=== PATIENT | male | born 1965 | race Caucasian/White ===

== ENCOUNTER 2020-12-15 14:25 | Outpatient (CLI) | payer OTHER ==
[2020-12-15 16:08] LABS: #Basophils 0.1 10x3/uL (0.0-0.2); #Eosinphils 0.3 10x3/uL (0.0-0.5); #Monocytes 1.1 10x3/uL (0.0-1.1); %Basophils 0.8 % (0.0-2.0); %Eosinophils 2.3 % (0.0-6.0); %Lymphocytes 17.1 % (18.0-47.0); %Monocytes 9.6 % (0.0-10.0); %Neutrophils 69.7 % (40.0-75.0); Hemoglobin 15.8 g/dL (13.5-17.5); Mean Corpuscular HGB CONC 33.3 g/dL (32.0-36.0); Mean Corpuscular Hemoglobin 30.5 pg (27.0-33.0); Mean Corpuscular Volume 91.5 fl (81.2-95.1); Mean Platelet Volume 9.5 fl (7.4-10.4); Platelet Count 285 10x3/uL (150-450); RBC Distribution Width 12.6 % (11.5-14.5); Red Blood Cell (RBC) Count 5.18 10x6/uL (4.32-5.72); White Blood Cell (WBC) Count 11.4 10x3/uL (3.5-10.5)
[2020-12-16 11:50] LABS: SARS-CoV-2 PCR by NAA Not Detected (NotDetected)
== END 2020-12-15 14:26 | disposition home or self-care (01) ==
LOC: LABBT 14:25
PROVIDERS: ATTEND Orthopaedic Surgery Hand Surgery
DX: Z01.812 Encounter for preprocedural laboratory examination (principal); G56.03 Carpal tunnel syndrome, bilateral upper limbs; Z20.822 Contact with and (suspected) exposure to COVID-19
CPT/HCPCS: 85025; U0003; U0005

== ENCOUNTER 2020-12-18 05:41 | Day surgery (SDC) | payer OTHER ==
[2020-12-17 11:01] VITALS: BMI 38.7
[2020-12-18] MEDS ORDERED: ceFAZolin 2 GM/DEX 5% 100 ML BAG ONE ×2 (06:14→07:14)
[2020-12-18] MEDS ORDERED: Bacitracin Zinc Ointment 30 gm TUBE ONE (06:45)
[2020-12-18] MEDS ORDERED: Bupivacaine PF 0.5% 30 ML VIAL ONE ×2 (06:45→08:27)
[2020-12-18] MEDS ORDERED: Betamet Acet/Betamet Na Ph 30 MG/5 ML VIAL ONE (06:45)
[2020-12-18] MEDS ORDERED: Neomycin-Polymyxin 1 ML AMP ONE (06:45)
[2020-12-18] MEDS ORDERED: Morphine 10 MG/ML VIAL ONE (06:57)
[2020-12-18] MEDS ORDERED: Fentanyl 100 MCG/2 ML VIAL ONE (06:57)
[2020-12-18] MEDS ORDERED: Ondansetron PF 4 MG/2 ML Vial ONE (07:24)
[2020-12-18] MEDS ORDERED: Dexamethasone 20 MG/5 ML VIAL ONE (07:24)
[2020-12-18] MEDS ORDERED: Ketorolac Tromethamine 30 MG/ML VIAL ONE (07:24)
[2020-12-18] MEDS ORDERED: PROPOFOL 200 MG/20 ML VIAL ONE (07:24)
[2020-12-18] MEDS ORDERED: diphenhydrAMINE 50 MG/ML VIAL ONE (07:24)
[2020-12-18] MEDS ORDERED: Lidocaine 2% PF 5 ML VIAL ONE (07:24)
[2020-12-18] MEDS ORDERED: hydrALAZINE 20 MG/ML VIAL ONE (09:01)
[2020-12-18] MEDS ORDERED: Labetalol HCl 100 MG/20 ML VIAL ONE (09:18)
== END 2020-12-18 11:35 | disposition home or self-care (01) ==
LOC: SDC 05:41
PROVIDERS: ATTEND Orthopaedic Surgery Hand Surgery
PROC: 01N50ZZ Release Median Nerve, Open Approach (ICD-10-PCS; principal; 2020-12-18)
DX: G56.03 Carpal tunnel syndrome, bilateral upper limbs (principal); Z79.899 Other long term (current) drug therapy
CPT/HCPCS: 71045; J0360; J0702; J1100; J1200; J1885; J2001; J2270; J2405; J2704; J3010; J7620; S0020